=== PATIENT | female | born 1965 | race Caucasian/White ===

== ENCOUNTER → 2017-01-06 | Outpatient (CLI) | payer BC ==
[~2017-01-06] MED LIST: ACLI400A2 INH; AMOX500T2 PO; ARIP5TAB12 PO; ASPI-557 PO; HYDR-347 PO; IBUP-1547 PO; MECL-103 PO; MELO-267 PO; METF500T4 PO; OMEP40CA52 PO; PRAZ1CAP5 PO; ROSU20TA23 PO; VENL-69 PO; VENL75CA60 PO
--- NOTE | 2017-01-06 16:16 | DI ---
Indication: ITS.REASON: N23 RENAL COLIC; R10.9 ABD PAIN PROCEDURE: CT RENAL W/O CONTRAST: Encounter: Initial Comparison: Renal CT dated June 01, 2014 Technique: Axial CT images were performed through the abdomen and pelvis without intravenous contrast. Coronal and sagittal two-dimensional reformats. Automated Exposure Control and Iterative Reconstruction dose reducing techniques were utilized. Findings: The lung bases are grossly clear. The liver is diffusely decreased in attenuation consistent with fatty infiltration. The liver is also enlarged at greater than 25 cm craniocaudal length. The gallbladder is surgical absent. There are geographic areas of focal fatty sparing within the liver parenchyma. The spleen, pancreas and adrenal glands are stable with minimal adenomatous hyperplasia of the adrenals. The kidneys are normal. No ureteral stones. The bladder is normal. No abdominal or pelvic lymphadenopathy. The uterus is surgically absent. Mild colonic diverticulosis without evidence of acute diverticulitis. No evidence of a bowel obstruction. The appendix is normal. Bone windows show no acute findings. Impression: 1. No urolithiasis. No acute disease process seen. 2. Interval development of hepatic steatosis and hepatomegaly. .
== END ==
LOC: IMA 15:11
PROVIDERS: ATTEND Physician Assistant
DX: K76.0 Fatty (change of) liver, not elsewhere classified (principal); R16.0 Hepatomegaly, not elsewhere classified; R10.12 Left upper quadrant pain

== ENCOUNTER 2017-01-09 14:03 | Emergency (ER) | payer BC ==
[~2017-01-09] VITALS: Ht 157.5 cm; Wt 96.2 kg
[~2017-01-09 14:03] MED LIST changes: -HYDR-347 PO; -MELO-267 PO
[2017-01-09 14:05] VITALS: Ht 157.5 cm; Wt 96.2 kg
--- OUTSIDE RECORDS SUMMARY | 2017-01-09 14:06 | XMS REPORT ---
Author Author GENERATED, SYSTEM Organization Unknown Address Unknown Phone Unavailable Care Team Providers Care Tobacco Primer Machine Operator Name Role Phone UNASSIGNED DOCTORMD DOCTOR PP [phone] Reason For Visit Reason for Visit from 05/25/2014 6:39 PM:* Pt Stated Reason for Adm : Depression, PTSD, Suicidial Ideation Chief Complaint DEPRESSION, PTSD, SUICIDAL IDEATION Social History Social History from 05/28/2014 1:03 PM:* Tobacco Use? : Current Everyday Smoker Social History from 05/25/2014 6:39 PM:* Tobacco Use? : Current Everyday Smoker Functional Status Functional Status from 05/28/2014 9:30 AM:* LOC : Alert * Oriented To : Person,Place,Time,Event * Weight Bearing Status : Full * Assist Level : Independent * # Assists : Independent Functional Status from 05/27/2014 7:56 PM:* LOC : Alert * Oriented To : Person,Place,Time,Event * Weight Bearing Status : Full * Assist Level : Independent * # Assists : Independent Functional Status from 05/27/2014 9:13 AM:* LOC : Alert * Oriented To : Person,Place,Time,Event * Weight Bearing Status : Full * Assist Level : Independent * # Assists : Independent Functional Status from 05/26/2014 9:26 PM:* LOC : Alert * Oriented To : Person,Place,Time * Weight Bearing Status : Full * Assist Level : Independent * # Assists : Independent Functional Status from 05/26/2014 4:49 PM:* LOC : Alert * Oriented To : Person,Place,Time,Event * Weight Bearing Status : Full * Assist Level : Independent * # Assists : Independent Functional Status from 05/25/2014 10:00 PM:* LOC : Alert * Oriented To : Person,Place,Time,Event * Weight Bearing Status : Full * Assist Level : Independent * # Assists : Independent Functional Status from 05/25/2014 6:39 PM:* LOC : Alert * Oriented To : Person,Place,Time,Event * Weight Bearing Status : Full * Assist Level : Independent * # Assists : Independent Vital Signs Hospital Vital Signs from 05/28/2014 6:51 AM:* Height : 5/2 ft,in * Temperature : 98.1 F * Pulse : 78 * Respirations : 18 * BP : 97/66 Hospital Vital Signs from 05/27/2014 6:58 AM:* Height : 5/2 ft,in * Temperature : 97.9 F * Pulse : 59 * Respirations : 20 * BP : 101/64 Hospital Vital Signs from 05/26/2014 12:00 PM:* Height : 5/2 ft,in * Temperature : 97.0 F * Pulse : 75 * Respirations : 18 * BP : 123/73 Hospital Vital Signs from 05/26/2014 7:27 AM:* Weight : 85.2/ kg * Height : 5/2 ft,in Hospital Vital Signs from 05/26/2014 6:41 AM:* Weight : 85.2/ kg * Height : 5/2 ft,in * Temperature : 97 F * Pulse : 64 * Respirations : 20 * BP : 115/75 Hospital Vital Signs from 05/25/2014 9:49 PM:* Height : 5/2 ft,in * Temperature : 97.9 F * Pulse : 70 * Respirations : 18 * BP : 114/77 Hospital Vital Signs from 05/25/2014 7:15 PM:* Height : 5/2 ft,in * Temperature : 97.8 F * Pulse : 77 * Respirations : 18 * BP : 113/68 Hospital Vital Signs from 05/25/2014 6:39 PM:* Weight : 85/ kg * Height : 5/2 ft,in Results Chemistry from 05/25/2014 9:00 PMCOCAINE NEGATIVE (NEG <150 ) PCP NEGATIVE (NEG <25 ) OXYCODONE NEGATIVE (NEG <100 ) *PROPOXYPHENE (NORPROPOXYPHENE) (LAB) NEGATIVE (NEG <300 ) CANNABINOIDS NEGATIVE (NEG <50 ) BENZODIAZEINE POSITIVE A (NEG <150 ) AMPHETAMINE NEGATIVE (NEG <500 ) BARBITURATES NEGATIVE (NEG <200 ) METHAMPHETAMINES NEGATIVE (NEG <500 ) METHADONE (UR) NEGATIVE (NEG <200 ) OPIATES NEGATIVE (NEG <100 ) TRICYCLICS NEGATIVE (NEG <300 ) Chemistry from 05/25/2014 7:19 PMSODIUM 139 MMOL/L (136-145 MMOL/L) POTASSIUM 3.7 MMOL/L (3.5-5.1 MMOL/L) CHLORIDE 106 MMOL/L (98-107 MMOL/L) TCO2 26.2 MMOL/L (21.0-32.0 MMOL/L) ANION GAP 6.8 MMOL/L L (8.0-16.0 MMOL/L) BUN 17 MG/DL (7-18 MG/DL) CREATININE 1.02 MG/DL H (0.43-0.83 MG/DL) BUN/CREATININE RATIO 16.7 (9.1-17.0 ) GLUCOSE 153 MG/DL H (65-99 MG/DL) GFR EST NON AFR GAMBIAN 65 ML/MIN GFRA EST AFR AMER 76 ML/MIN CALCIUM 9.1 MG/DL (8.5-10.1 MG/DL) BILIRUBIN TOTAL 0.12 MG/DL L (0.20-1.00 MG/DL) TOTAL PROTEIN 7.3 GM/DL (6.4-8.2 GM/DL) ALBUMIN 3.8 GM/DL (3.4-5.0 GM/DL) GLOBULIN 3.5 GM/DL (2.3-3.5 GM/DL) A/G RATIO 1.1 MG/DL L (1.5-2.2 MG/DL) ALK PHOS 79 U/L (46-116 U/L) ALT (SGPT) 35 U/L (12-78 U/L) AST (SGOT) 18 U/L (15-37 U/L) TSH 3.65 UIU/ML (0.34-4.82 UIU/ML) THYROXINE FREE 0.53 NG/DL L (0.59-1.19 NG/DL) ALCOHOL <0.003 GM/DL Hematology from 05/25/2014 7:19 PMWBC 8.5 X10e3/UL (3.6-11.2 X10e3/UL) RBC 4.66 X10e6/UL (3.63-4.92 X10e6/UL) HEMOGLOBIN 14.4 G/DL H (11.0-14.3 G/DL) HEMATOCRIT 41.9 % (31.2-41.9 %) MCV 89.9 FL (79.0-98.0 FL) MCH 31.0 PG (27.0-33.0 PG) MCHC 34.5 G/DL (32.0-36.0 G/DL) RDW 13.8 % (12.3-17.0 %) PLATELET 204 X10e3/UL (159-386 X10e3/UL) MPV 8.7 FL (7.4-10.4 FL) Urinalysis from 05/25/2014 9:00 PMURINE COLOR YELLOW (STRAW/YELL/DK YELL ) URINE APPEARANCE CLEAR (CLEAR ) URINE PH 6.0 (5.0-8.0 ) URINE SPECIFIC GRAVITY >1.030 (<=1.005->=1.030 ) URINE GLUCOSE NEGATIVE MG/DL (NEGATIVE MG/DL) URINE BILIRUBIN NEGATIVE (NEGATIVE ) URINE KETONES NEGATIVE MG/DL (NEGATIVE MG/DL) URINE BLOOD SMALL A (NEGATIVE ) URINE PROTEIN NEGATIVE MG/DL (NEGATIVE MG/DL) URINE UROBILINOGEN 0.2 EU/DL (0.2-1.0 EU/DL) URINE NITRITES NEGATIVE (NEGATIVE ) *URINE LEUKOCYTES NEGATIVE (NEGATIVE ) UR NEGATIVE (NEGATIVE ) MICROSCOPIC EXAM PERFORMED PERFORMED RBC 5-10 /HPF A (0-1 /HPF) SQUAMOUS EP. CELLS MANY /LPF A (NEG-FEW /LPF) MUCOUS THREADS MODERATE /LPF A (NEGATIVE /LPF) BACTERIA FEW /HPF A (NEGATIVE /HPF) Problems Encounter Diagnosis No relevant problems exist. Encounters Encounter Diagnosis No relevant problems exist. Plan of Care Follow-up Appointments from 05/28/2014 1:03 PM:* #1 Office appointment: : Ulises Leyva * #1 Date/Time : 06/05/2014 12:30 PM * Address # 1 : [facility]: [address], [address] * #2 Office appointment: : Dr. Tate * #2 Date/Time : 06/20/2014 2:40 PM * Address # 2 : [facility]: [address], [address] Procedures No relevant procedures performed. Immunizations No immunizations administered or ordered. Hospital Course Hospital Discharge Instructions How to care for yourself at home from 05/28/2014 1:03 PM:* Discharge Activity : Activity as tolerated * Discharge Diet : As before hospitalization * Call your doctor if: : Fever over 101 F or severe chills,Chest pain or other unexplained symptoms,Tingling or numbness develops,A sudden increase or decrease in weight,You have persistent or worsening symptoms,If you have Heart Failure and you gain 3 pounds within 1 week or your symptoms worsen. (Weigh at home tomorrow morning) Allergies, Adverse Reactions, Alerts * Fluarix [id number] (PF) causes unspecified. * No Latex Allergy. * No IV Contrast Allergy. Medication It is the responsibility of the patient or patient utility sales representative to confirm the list of medications with either the patient's personal care provider or the patient's follow-up care provider to ensure the patient has an appropriate list of medications to take at home. Discharge medications New medications* risperidone 0.5 mg Tablet, Ordered By: TYLER KRISHNAMURTHY APRN Directions: 1 tablet oral twice a day * atorvastatin 20 mg Tablet, Ordered By: TYLER KRISHNAMURTHY APRN Directions: 1 tablet oral daily at bedtime Additional Instructions: AUTOSUB FOR SIMVASTATIN Continued medications* omeprazole 40 mg capsule,delayed release(DR/EC), Ordered By: TYLER KRISHNAMURTHY APRN Directions: 1 capsule oral daily before breakfast PRN indigestion * clonazePAM 1 mg Tablet, Ordered By: TYLER KRISHNAMURTHY APRN Directions: 1 tablet oral twice a day Changed medications* sertraline 100 mg Tablet, Ordered By: TYLER KRISHNAMURTHY APRN Directions: 2 tablet oral daily * prazosin 1 mg Capsule, Ordered By: TYELR KRISHNAMURTHY APRN Directions: 3 capsule oral daily Stopped medications* simvastatin 40 mg Tablet Directions: 1 tablet oral daily at bedtime
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
--- OUTSIDE RECORDS SUMMARY | 2017-01-09 14:06 | XMS REPORT ---
Author Author GENERATED, SYSTEM Organization Unknown Address Unknown Phone Unavailable Care Team Providers Care Java Architect Name Role Phone UNASSIGNED DOCTOR , DOCTOR PP [phone] Reason For Visit Chief Complaint V58.69 Social History Functional Status Vital Signs Results Problems Encounter Diagnosis No relevant problems exist. Encounters Encounter Diagnosis No relevant problems exist. Plan of Care Procedures No relevant procedures performed. Immunizations No immunizations administered or ordered. Hospital Course Hospital Discharge Instructions Allergies, Adverse Reactions, Alerts * Fluarix [id number] (PF) causes unspecified. * Latex Allergy has not been assessed. * IV Contrast Allergy has not been assessed. Medication Medication reconciliation has not been performed.
--- OUTSIDE RECORDS SUMMARY | 2017-01-09 14:06 | XMS REPORT | Continuity of care Document ---
Author Author GENERATED, SYSTEM Organization Unknown Address Unknown Phone Unavailable Purpose Hospital Course Allergies, Adverse Reactions, Alerts * Fluarix 9128-2006 (PF) causes unspecified. * No Latex Allergy. * No IV Contrast Allergy. Problems No relevant problems exist. Procedures No relevant procedures performed. Medication It is the responsibility of the patient or patient logistics service representative to confirm the list of medications with either the patient's personal care provider or the patient's follow-up care provider to ensure the patient has an appropriate list of medications to take at home. Take These Medications* risperidone 0.5 mg Tablet, Ordered By: KANIKA ARAIZA MD Directions: 1 tablet oral twice a day * sertraline 100 mg Tablet, Ordered By: KANIKA ARAIZA MD Directions: 2 tablet oral daily every morning * prazosin 2 mg Capsule, Ordered By: KANIKA ARAIZA MD Directions: 1 capsule oral daily at bedtime Additional Instructions: USE 1 - 1MG CAPSULE AND 1 - 2MG CAPSULE FOR 3MG TOTAL DOSE * omeprazole 20 mg capsule,delayed release(DR/EC), Ordered By: KANIKA ARAIZA MD Directions: 1 capsule oral daily before breakfast * clonazePAM 1 mg Tablet, Ordered By: KANIKA ARAIZA MD Directions: 1 tablet oral twice a day * simvastatin 40 mg Tablet, Ordered By: KANIKA ARAIZA MD Directions: 1 tablet oral daily at bedtime Stop Taking These Medications* None Results Chemistry from 02/03/2014 4:17 PMSODIUM 139 MMOL/L (136-145 MMOL/L) POTASSIUM 3.7 MMOL/L (3.5-5.1 MMOL/L) CHLORIDE 102 MMOL/L (98-107 MMOL/L) TCO2 28.2 MMOL/L (21.0-32.0 MMOL/L) ANION GAP 8.8 MMOL/L (8.0-16.0 MMOL/L) BUN 15 MG/DL (7-18 MG/DL) CREATININE 0.84 MG/DL H (0.43-0.83 MG/DL) BUN/CREATININE RATIO 17.9 H (9.1-17.0 ) GLUCOSE 58 MG/DL L (65-99 MG/DL) GFR EST NON AFR BRUNEIAN 83 ML/MIN GFRA EST AFR AMER >=90 ML/MIN CALCIUM 9.1 MG/DL (8.5-10.1 MG/DL) BILIRUBIN TOTAL 0.30 MG/DL (0.20-1.00 MG/DL) TOTAL PROTEIN 7.3 GM/DL (6.4-8.2 GM/DL) ALBUMIN 3.6 GM/DL (3.4-5.0 GM/DL) GLOBULIN 3.7 GM/DL H (2.3-3.5 GM/DL) A/G RATIO 1.0 MG/DL L (1.5-2.2 MG/DL) ALK PHOS 79 U/L (46-116 U/L) ALT (SGPT) 36 U/L (12-78 U/L) AST (SGOT) 15 U/L (15-37 U/L) MAGNESIUM 2.1 MG/DL (1.8-2.4 MG/DL) TSH 2.23 UIU/ML (0.34-4.82 UIU/ML) THYROXINE FREE 0.74 NG/DL (0.59-1.19 NG/DL) Chemistry from 02/03/2014 4:42 PMCOCAINE NEGATIVE (NEG <150 ) PCP NEGATIVE (NEG <25 ) OXYCODONE NEGATIVE (NEG <100 ) *PROPOXYPHENE (NORPROPOXYPHENE) (LAB) NEGATIVE (NEG <300 ) CANNABINOIDS NEGATIVE (NEG <50 ) BENZODIAZEINE NEGATIVE (NEG <150 ) AMPHETAMINE NEGATIVE (NEG <500 ) BARBITURATES NEGATIVE (NEG <200 ) METHAMPHETAMINES NEGATIVE (NEG <500 ) METHADONE (UR) NEGATIVE (NEG <200 ) OPIATES NEGATIVE (NEG <100 ) TRICYCLICS NEGATIVE (NEG <300 ) Hematology from 02/03/2014 4:17 PMWBC 8.3 X10e3/UL (3.6-11.2 X10e3/UL) RBC 4.54 X10e6/UL (3.63-4.92 X10e6/UL) HEMOGLOBIN 14.1 G/DL (11.0-14.3 G/DL) HEMATOCRIT 41.1 % (31.2-41.9 %) MCV 90.5 FL (79.0-98.0 FL) MCH 31.2 PG (27.0-33.0 PG) MCHC 34.4 G/DL (32.0-36.0 G/DL) RDW 13.8 % (12.3-17.0 %) RDWSD 43.3 (37.1-47.8 ) PLATELET 210 X10e3/UL (159-386 X10e3/UL) MPV 8.6 FL (7.4-10.4 FL) Urinalysis from 02/03/2014 4:42 PMURINE COLOR YELLOW (STRAW/YELL/DK YELL ) URINE APPEARANCE CLEAR (CLEAR ) URINE PH 6.0 (5.0-8.0 ) URINE SPECIFIC GRAVITY 1.020 (<=1.005->=1.030 ) URINE GLUCOSE NEGATIVE MG/DL (NEGATIVE MG/DL) URINE BILIRUBIN NEGATIVE (NEGATIVE ) URINE KETONES NEGATIVE MG/DL (NEGATIVE MG/DL) URINE BLOOD Trace-Intact A (NEGATIVE ) URINE PROTEIN NEGATIVE MG/DL (NEGATIVE MG/DL) URINE UROBILINOGEN 0.2 EU/DL (0.2-1.0 EU/DL) URINE NITRITES NEGATIVE (NEGATIVE ) *URINE LEUKOCYTES NEGATIVE (NEGATIVE ) UR NEGATIVE (NEGATIVE ) MICROSCOPIC EXAM PERFORMED PERFORMED WBC 0-1 /HPF (0-5 /HPF) RBC 1-5 /HPF A (0-1 /HPF) SQUAMOUS EP. CELLS MANY /LPF A (NEG-FEW /LPF) MUCOUS THREADS FEW /LPF A (NEGATIVE /LPF) BACTERIA FEW /HPF A (NEGATIVE /HPF)
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
--- OUTSIDE RECORDS SUMMARY | 2017-01-09 14:36 | XMS REPORT ---
Author Author GENERATED, SYSTEM Organization Unknown Address Unknown Phone Unavailable Care Team Providers Care General Accounting Clerk Name Role Phone UNASSIGNED DOCTOR , DOCTOR PP [phone] Reason For Visit Chief Complaint V58.69 Social History Functional Status Vital Signs Results Problems Encounter Diagnosis No relevant problems exist. Encounters Encounter Diagnosis No relevant problems exist. Plan of Care Procedures No relevant procedures performed. Immunizations No immunizations administered or ordered. Hospital Course Hospital Discharge Instructions Allergies, Adverse Reactions, Alerts * Fluarix [id number] (PF) causes unspecified. * Latex Allergy has not been assessed. * IV Contrast Allergy has not been assessed. Medication Medication reconciliation has not been performed.
--- OUTSIDE RECORDS SUMMARY | 2017-01-09 14:36 | XMS REPORT ---
Author Author GENERATED, SYSTEM Organization Unknown Address Unknown Phone Unavailable Care Team Providers Care Roasterman Name Role Phone UNASSIGNED DOCTORMD DOCTOR PP [phone] Reason For Visit Reason for Visit from [...] H (65-99 MG/DL) GFR EST NON AFR BHUTANESE 65 ML/MIN GFRA EST AFR AMER 76 [...] 12:30 PM * Address # 1 : [facility]: [address], [address] * #2 Office appointment: : Dr. Tate * #2 Date/Time : 06/20/2014 2:40 PM * Address # 2 : [facility]: [address], [address] Procedures No relevant procedures performed. Immunizations [...] morning) Allergies, Adverse Reactions, Alerts * Fluarix [id number] (PF) causes unspecified. * No Latex Allergy. * No IV Contrast Allergy. Medication It is the responsibility of the patient or patient administrative representative to confirm the list of medications [...] * prazosin 1 mg Capsule, Ordered By: TYLER KRISHNAMURTHY APRN Directions: 3 capsule oral daily Stopped medications* simvastatin 40 mg Tablet Directions: 1 tablet oral daily at bedtime
--- OUTSIDE RECORDS SUMMARY | 2017-01-09 14:36 | XMS REPORT | Continuity of care Document ---
Author Author GENERATED, SYSTEM Organization Unknown Address Unknown Phone Unavailable Purpose Hospital Course Allergies, Adverse Reactions, Alerts * Fluarix 4310-1499 (PF) causes unspecified. * No Latex Allergy. * No IV Contrast Allergy. Problems No relevant problems exist. Procedures No relevant procedures performed. Medication It is the responsibility of the patient or patient telephone services sales representative to confirm the list of [...] L (65-99 MG/DL) GFR EST NON AFR COMORAN 83 ML/MIN GFRA EST AFR AMER >=90 [...]
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
[2017-01-09] MEDS ORDERED: MELO-267 PO (14:44)
--- NOTE | 2017-01-09 14:47 | DI ---
Indication: ITS.REASON: Knee pain PROCEDURE: KNEE RIGHT 3 VIEWS: Encounter: Initial Comparison: None Findings: There is no acute fracture, dislocation or malalignment identified. Joint spaces appear normal. No obvious joint effusion. Impression: No acute osseous abnormality. .
[2017-01-09] MEDS ORDERED: HYDR-347 PO (15:14)
--- NOTE | 2017-01-09 15:14 | ERPDOC ---
Departure Disposition Decision Date: Jan 09, 2017 Disposition Decision Time: 15:12 Disposition: 01 DISCHARGED HOME, SELF-CARE Impression Impression Impression: Primary Impression: Knee pain, acute Laterality: right Qualified Codes: M25.561 - Pain in right knee Severity: Moderate Condition: Improved Seen By: Physician only Referrals: GERMAN LUJAN DO (Family) 2 Days Patient Instructions: Knee Pain (ED) Problems/Meds/Labs Reviewed?: Yes Medications reviewed and manag: Yes Follow up care ordered?: Yes Mental Status: Alert, Oriented Scripts Hydrocodone/Acetaminophen ([place] 7.5-325 Tablet) 7.5-325 Tablet 1 TAB PO Q4HR for 3 Days, #18 TAB 0 Refills Prov: KIKA MANCUSO 01/09/17 HPI - General Medical General Chief Complaint: Lower Extremity Pain Stated Complaint: R KNEE PAIN Time Seen by Provider: 14:05 Source: patient Exam Limitations: no limitations HPI - General Medical Initial Comments 51-year-old female presents to the emergency department with a chief complaint of pain in the right knee. Patient was being seen at her chiropractor today when he manipulated her back. One of the manipulations involved pulling on the right lower extremity and afterwards the patient felt pain in the right knee. Pain increases with movement and ambulation of the right knee. Pain improves with rest and positioning. Patient denies any other complaints or associated symptoms. Pain is sharp. No radiation of pain. Pain is moderate in nature. Patient denies any other complaints or associated symptoms. Symptoms onset earlier today. Symptoms have been persistent in nature since onset. Occurred At: home Onset: Constant Allergies: Coded Allergies: No Known Allergies (Unverified , 12/25/16) Past History Past Medical History Metabolic: diabetes, hypercholesterolemia Psychological: anxiety, depression, other Surgical History General: gallbladder Reproductive/: hysterectomy Family History Family History: Negative Social History Smoking Status: Current every day smoker Does patient use chewing tobac: No # of Packs/Tins per Day: 1.0 # of Years: 30 Second Hand Exposure: No Substance Use Type: does not use Alcohol Intake: none Review of Systems Constitutional Constitutional: DENIES: chills, fever Eyes General: DENIES: erythema, exudate Lids/Accessories: DENIES: erythema, swelling Vision: DENIES: acuity, blurring ENMT Ears: DENIES: drainage, erythema Hearing: DENIES: hearing loss Balance: DENIES: ataxia, falling to one side Sinuses: DENIES: congestion, pain Nose: DENIES: nosebleeds, pain Mouth/Throat: DENIES: painful swallowing, sore throat Teeth: DENIES: pain Jaw: DENIES: pain Cardiovascular Cardiac: DENIES: chest pain, dyspnea on exertion Rhythm/Rate: DENIES: irregular beat, palpitations Vascular: DENIES: pedal edema, unilateral swelling Pulmonary Respiratory: DENIES: cough, dyspnea, pleuritic chest pain, sputum GI Upper Abdomen: DENIES: nausea, pain, vomiting Lower Abdomen: DENIES: diarrhea, pain General: DENIES: dysuria, frequency Musculoskeletal General: joint pain, tenderness Integumentary Skin: DENIES: itching, rash Neurological General: DENIES: headache, numbness, weakness Psychiatric Psychiatric: DENIES: emotional instability, suicidal ideation/attempt Endocrine Endocrine: DENIES: polydipsia, polyphagia Hematologic/Lymphatic Hematologic/Lymphatic: DENIES: frequent nosebleeds, lymphadenopathy Allergic/Immunological Allergic/Immunoligical: DENIES: allergic reactions, hives Physical Exam General General Nourishment: well nourished, well developed, appears stated age, no acute distress, adult General Body Habitus: well groomed Vitals and Pain First Documented Vital Signs Date Time Temp Pulse Resp B/P Pulse Ox O2 Delivery O2 Flow Rate FiO2 01/09/17 14:05 98.5 90 18 162/72 94 Room Air Weight: Kilograms: 96.200 Height (feet): 5 Height (inches): 2.00 Triage Pain Scale: RN VS reviewed by Provider: Yes Normal Exams: Head: Normocephalic w/o trauma Eyes: Pupils are PERRLA w/ EOMI, No scleral icterus, irritation, or foreign bodies noted ENMT: No facial trauma, nasal exudates, pharyngeal erythema, or exudates are noted Dental: No fractured, loose, or missing teeth noted Neck: Full range of motion, without adenopathy, JVD, bruits or thyromegaly Chest/Resp: Clear all garica, with good airflow, and symmetry bilaterally CV: Regular rate and rhythm, without murmur or gallop, Pulses 2+ all extremities, capillary refill, <2 seconds all ext., no pedal edema noted Abdomen: Bowel sounds positive, soft, non-tender, non-distended, no hepatosplenomegaly, masses or bruits noted Lymphatic: No lymphadenopathy, or lymphedema noted Musculoskeletal: No tenderness, or deformity noted, good range of motion, all extremities Integumentary: No rashes, hives, or bruising noted, hair and nails, without abnormality Neurologic: Patient is alert, and oriented, cranial nerves, motor/sensory/ cerebellar, exams w/o gross deficits, to observation Psychiatric: Patient exhibits, appropriate attention, emotion and affect Musculoskeletal (brief) Comments R Knee - full range of motion. Diffusely tender to palpation. Pulses intact. Sensation intact. Capillary refill less than 2. No erythema. No edema. Unremarkable ligamentous examination. No other tenderness in the right lower extremity. Gait is painful. Skin intact. All other extremities are unremarkable. Differential Diagnoses Considering: Other (sprain/strain/fracture/internal derangement) Progress Results/Orders Orders Procedure Category Date Status Time Knee Right 3 Views RAD 01/09/17 Resulted 14:23 Acetaminophen PHA 01/09/17 Complete (Tylenol Extra 15:15 Knee Immobilizer RASHAUN 01/09/17 In Process 15:07 Crutches EDM 01/09/17 Transmitted 15:07 Medications Current ED Medications Acetaminophen (Tylenol Extra Strength) 1,000 mg O ONCE PO Last administered on 01/09/17t 15:24; Start 01/09/17 at 15:15; Stop 01/09/17 at 15:16; Status DC Progress Progress Imaging is discussed in detail with the patient and questions are answered. Patient is given analgesic pain medication with improvement of symptoms. Patient is recommended to be placed in knee immobilizer with crutches and nonweightbearing. Patient is placed in a knee immobilizer with good alignment by the RN. Patient is distal neurovascular intact post-application of knee immobilizer. Patient is discharged home in improved condition. Patient is to follow up as instructed. Patient is to return to the emergency department if her condition worsens or changes in any manner. Patient is in agreement with the current plan of management. Rx for [place] is provided. Xray Xray : Xray: Knee R Interpretation: Normal, Reviewed Written Report KIKA MANCUSO DO Jan 09, 2017 15:14
[2017-01-09] MEDS ORDERED: ACETAMINOPHEN 500 MG TABLET PO ONE (15:15)
[2017-01-09 15:25] VITALS: BP 162/72; PULSE 90; RESP 18; TEMP 98.5; O2SAT 94
== END 2017-01-09 15:25 | disposition home or self-care (01) ==
LOC: ED 14:03
DX: M25.561 Pain in right knee (principal)